=== PATIENT | female | born 2000 | race African-American/Black ===

== ENCOUNTER 2024-10-19 02:30 | Emergency (ER) | payer MEDICAID ==
[~2024-10-19] VITALS: Ht 154.9 cm; Wt 44.7 kg
[2024-10-19 02:39] VITALS: O2SAT 100
[2024-10-19 02:46] VITALS: BP 106/72; PULSE 87; RESP 16; TEMP 36.9; O2SAT 99
[2024-10-19 04:00] LABS: UCG KIT LOT# 946166; UCG SCREEN POSITIVE
[2024-10-19] MEDS ORDERED: PREN-118 MT (05:52)
== END 2024-10-19 06:12 | disposition home or self-care (01) ==
LOC: ER 03:45
DX: O26.91 Pregnancy related conditions, unspecified, first trimester (principal); O21.9 Vomiting of pregnancy, unspecified; Z3A.01 Less than 8 weeks gestation of pregnancy; Z90.49 Acquired absence of other specified parts of digestive tract; Z79.899 Other long term (current) drug therapy
CPT/HCPCS: 36415; 76801; 81025; 84702; 99284